=== PATIENT | male | born 1955 | race Caucasian/White ===

== ENCOUNTER 2020-07-17 11:58 | Outpatient (CLI) | payer MEDICARE ==
[2020-07-18 00:07] LABS: SARS-CoV-2 PCR by NAA Not Detected (NotDetected)
== END 2020-07-17 11:59 | disposition home or self-care (01) ==
LOC: NAV ER/OP 11:58
PROVIDERS: ATTEND Family Medicine
DX: Z01.812 Encounter for preprocedural laboratory examination (principal); Z20.822 Contact with and (suspected) exposure to COVID-19
CPT/HCPCS: U0003; U0005